=== PATIENT | female | born 1995 | race Caucasian/White ===

== ENCOUNTER 2016-07-25 08:12 | Emergency (ER) | payer SELFPAY ==
--- NOTE | ~2016-07-25 | ER ---
[facility] AGE[facility] 21 Y [address] ROOM: [place] [id number] LOCATION: ED ADMIT DATE: 07/25/2016 ER/Outpatient Report DISCHARGE DATE: 07/25/2016 FAMILY PHYSICIAN: PHYSICIAN, NO ATTENDING PHYSICIAN: Deb Trammell Time of Arrival: 0812 hours. Time of Evaluation: 0825 hours. IDENTIFICATION: A 21-year-old female. CHIEF COMPLAINT: Right facial swelling. HISTORY OF PRESENT ILLNESS: The patient is a 21-year-old female who originally is from [place], who woke up this morning with right facial pain. No fever or chills. No other problems. She does have a tooth on that right upper that is bothering her. ALLERGIES: NO KNOWN DRUG ALLERGIES. CURRENT MEDICATIONS: No current medications. MEDICAL PROBLEMS: No medical problems. SOCIAL HISTORY: She moved here not too long ago from [place] to [place]. 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 Tobacco use, half pack per day. Alcohol use, social. Drug use, denies. REVIEW OF SYSTEMS: All systems reviewed and negative other than the HPI. She is on her period at this time. She is interested in contraceptive choices and wondered where she could go for that. FAMILY HISTORY: No pertinent family history identified. REVIEW OF SYSTEMS: All systems reviewed and negative other than what is noted in the HPI. PATIENT'S NAME: LISA [facility] AGE: 21 Y [address] ROOM: [place] [id number] LOCATION: [facility] ADMIT DATE: 07/25/2016 ER/Outpatient Report DISCHARGE DATE: 07/25/2016 FAMILY PHYSICIAN: PHYSICIAN, NO ATTENDING PHYSICIAN: Deb Trammell PHYSICAL EXAMINATION: VITAL SIGNS: Height 5 feet 9 inches and weight 63.1 kg. Blood pressure 110/74, pulse 75, respirations 14, sats 100% on room air. GENERAL: A pleasant female, in no acute distress. HEENT: Head: Normocephalic, atraumatic. Ears: TMs translucent both ears. Nose: Mucosa pink, no lesions. Mouth: No lesions. Pharynx benign. She does have poor dentition with a tooth that is broken on the right lower through 1st molar tooth that is broken and tender in the right upper 1st molar. No surrounding erythema. She is tender over the right side of the face; however, with minimal swelling. NECK: Supple. No lymphadenopathy. No nuchal rigidity. LUNGS: Clear to auscultation. HEART: Regular rate and rhythm. ABDOMEN: Soft, nondistended, nontender. SKIN: [place], warm, and dry. No lesions or rashes noted. NEURO: No focal deficit. IMPRESSION: Right tooth abscess with facial swelling. PLAN: Amoxicillin 500 mg 2 tabs p.o. b.i.d. x7 days. [place] 5/325 one p.o. q.6 hours p.r.n. severe pain, dispensed 6 with 0 refills. Aleve p.r.n. pain. Soft diet. Dental handout, [facility] handout provided. Follow up with a dentist in 2 to 7 days. Follow up sooner if any problems or concerns. Note was given for work to remain off work tomorrow, okay to return on Monday. She is to follow up at [facility] to discuss contraception and she plans to go there today. We did give her the information, phone number, address, and handout. All questions have been answered. DEB TRAMMELL MD CAR/modl /[id number] d: 07/25/16 1302 t: 07/26/16 0923, OUTPATIENT REPORT
== END 2016-07-25 08:46 | disposition disaster alternative care site (69) ==
LOC: GMED 08:12
DX: K04.7 Periapical abscess without sinus (principal); F17.210 Nicotine dependence, cigarettes, uncomplicated